=== PATIENT | male | born 1960 | race Caucasian/White ===

== ENCOUNTER 2018-01-08 05:25 | Day surgery (SDC) | payer OTHER ==
[~2018-01-08] VITALS: Ht 167.6 cm; Wt 90.7 kg
--- NOTE | ~2018-01-08 | OP ---
PATIENT NAME: ERICK ROACH MEDICAL RECORD: [id number] :58 LOCATION:[facility] ADMISSION DATE: SURGEON: WESLY GONSALES MD DATE OF OPERATION: 01/08/2018 PREOPERATIVE DIAGNOSIS: Tattooed sessile ascending colon polyp, about 2 cm. POSTOPERATIVE DIAGNOSES: Tattooed sessile ascending colon polyp, about 2 cm with 1.0 cm semi-pedunculated polyp in the lower rectum. PROCEDURES: 1. Total colonoscopy to cecum. 2. Submucosal epinephrine injection. 3. Snare polypectomy. 4. Treatment of the polypoid base with the argon plasma maintenance supervisor. 5. Closure of the excised defect with 4 endoscopic clips. 6. Hot biopsy forceps polypectomy times 1. SURGEON: Wesly Gonsales MD. SHIPPING AND RECEIVING CLERK: None. BLOOD LOSS: Minimal. ANESTHESIA: General. COMPLICATIONS: None. The risks, possible complications, and alternatives to procedure were explained to the patient. He elects to proceed. The discussion specifically included, but was not limited to, bleeding requiring emergency reoperation, infection, endoscopic perforation. OPERATIVE COURSE: The patient was conveyed to the operating room electively on 01/08/2018. General anesthesia was induced by anesthesia staff. The patient was placed in the Tam position. A digital rectal examination was performed. The prostate was symmetric and without nodules. A colonoscope was inserted through the anus. It was easily advanced to the cecum. The prep was adequate. Upon withdrawal, I irrigated and aspirated extensively. A combination of normal imaging and narrow band imaging were utilized. The pullback was greater than 18-minute pullback. I dragged the folds. I noted the polyp at the hepatic flexure. I advanced a sclerotherapy needle. A submucosal injection of epinephrine was performed. This provided for a nice pillow of epinephrine underneath the polyp and a good lift of the polyp away from the colonic wall. I advanced an endoscopic snare. I was able to snare the base of this sessile polyp. There was a small amount of polypoid tissue around the excision site. This was ablated utilizing the argon plasma maintenance supervisor with the right colon setting and the forced mode. After the argon plasma coagulation therapy and the snare polypectomy, there was a defect in the colonic wall that was not full thickness, but it was very thin. In order to reinforce this area, I placed a row of 4 endoscopic clips. An endoscopic retrieval net was then advanced. I was able to grasp the polyp within the net and withdraw out through the anus. I then readvanced the scope. A retroflexed view was obtained in the rectum. It revealed a polyp, which was OPERATIVE REPORT [id number] ERICK ROACH removed utilizing the hot biopsy forceps polypectomy technique. Several other trivial polyps were noted and these were ablated with the argon plasma maintenance supervisor. I then unretroflexed the scope and removed it under direct vision. I will see the patient in my office in 2-3 weeks. I will plan for a repeat colonoscopy with the argon plasma maintenance supervisor in one year. TRANSINT:[id number] Voice Confirmation ID: [id number] DOCUMENT ID: [id number] WESLY GONSALES MD at 1227 CC: JOSSUE GREGORY and KATI CASTRO DO [id number] DICTATION DATE: 01/08/18824 [facility]: 01/08/18924 [facility] 01/08/18 [id number] [place] [address]
[~2018-01-08 05:25] MED LIST: COZAAR50 MG PO
[2018-01-08] MEDS ORDERED: BAYER CHEWABLE81 MG PO (06:25)
[2018-01-08] MEDS ORDERED: MULTIPLE VITAMI1 TA1 PO (06:25)
[2018-01-08] MEDS ORDERED: CLARITIN 10 MG10 MG PO (06:26)
[2018-01-08 06:27] LABS: HEMATOCRIT 39.9 % (42.0-54.0); HEMOGLOBIN 13.6 g/dL (13.5-17.5); MCH 32.4 pg (26.0-34.0); MCHC 34.1 g/dL (31.0-37.0); MEAN PLATELET VOLUME 9.4 fL (7.4-10.4); RBC 4.2 10x6/uL (4.20-6.10); RDW 13.5 % (11.5-14.5); WBC 6.2 10x3/uL (4.8-10.8)
[2018-01-08 06:31] VITALS: BP 138/83; Ht 167.6 cm; Wt 90.7 kg
== END 2018-01-08 10:50 | disposition home or self-care (01) ==
LOC: D.PAN 05:25 → D.OPS 10:00 → D.PAN 10:50
PROVIDERS: Anesthesiology
DX: D12.2 Benign neoplasm of ascending colon (principal); K62.1 Rectal polyp; Z01.812 Encounter for preprocedural laboratory examination

== ENCOUNTER → 2021-01-15 14:45 | Outpatient (CLI) | payer OTHER ==
[2018-01-08 06:31] VITALS: BMI 32.3
[~2021-01-15 14:45] MED LIST changes: +BAYER CHEWABLE81 MG PO; +CLARITIN 10 MG10 MG PO; +MULTIPLE VITAMI1 TA1 PO
== END | disposition home or self-care (01) ==
LOC: D.US 14:45
PROVIDERS: ATTEND Nurse Practitioner
DX: D17.1 Benign lipomatous neoplasm of skin and subcutaneous tissue of trunk (principal)

== ENCOUNTER 2021-02-04 10:20 | Day surgery (SDC) | payer OTHER ==
[~2021-02-04] VITALS: Ht 167.6 cm; Wt 93.0 kg
[~2021-02-04 10:20] MED LIST changes: +FISH OIL 1,0001 CA1 PO; +[UNRECOGNIZED DRUG - REMARK]
[2021-02-04 11:07] LABS: BASOPHILS 0.6 % (0-2); EOSINOPHILS 1.1 % (0-7); HEMATOCRIT 40.8 % (42.0-54.0); HEMOGLOBIN 13.6 g/dL (13.5-17.5); LYMPHOCYTES 36.5 % (15-50); MCH 31.8 pg (26.0-34.0); MCHC 33.3 g/dL (31.0-37.0); MCV 95.4 fL (80.0-100.0); MONOCYTES 8.8 % (2-11); RBC 4.28 10x6/uL (4.20-6.10); RDW 13.5 % (11.5-14.5); WBC 7.2 10x3/uL (4.8-10.8)
[2021-02-04 11:19] LABS: CALC OSMOLALITY 273 mosm/kg (275-300); CALCIUM 8.8 mg/dL (8.5-10.1); CARBON DIOXIDE 28.5 mmol/L (21.0-32.0); CHLORIDE - SERUM 102 mmol/L (98-107); CREATININE - SERUM 0.9 mg/dL (0.6-1.3); GLUCOSE 85 mg/dL (74-106); POTASSIUM - SERUM 4.4 mmol/L (3.5-5.1); SODIUM 138 mmol/L (136-145); UREA NITROGEN 11 mg/dL (7-18); eGFR NON AFRICAN AMERICAN > 90 mL/min (90-120)
[2021-02-04 11:26] LABS: PLATELET COUNT 295 10x3/uL (130-400)
[2021-02-04] MEDS ORDERED: LIPITOR10 MG PO (14:00)
[2021-02-04 14:03] VITALS: BP 158/82; Ht 167.6 cm; Wt 93.0 kg
--- NOTE | 2021-02-04 18:30 | NUR ---
IV D/C'D WITH CANNULA INTACT, PRESSURE HELD AND DRSG PLACED. DISCHARGE INSTRUCTIONS GIVEN AND PT AND VERBALIZED AN UNDERSTANDING. DISCHARGED HOME WITHOUT C/O
--- NOTE | 2021-02-05 15:36 | OP ---
PATIENT NAME: ERICK ROACH MEDICAL RECORD: [id number] :58 LOCATION:[facility] ADMISSION DATE: SURGEON: WESLY GONSALES MD DATE OF OPERATION: 02/04/2021 PREOPERATIVE DIAGNOSIS: A subcutaneous mass at the cephalad portion of the sternum overlying the manubrium. POSTOPERATIVE DIAGNOSIS: A subcutaneous mass at the cephalad portion of the sternum overlying the manubrium. The mass was a sebaceous cyst. PROCEDURE: Excision of sebaceous cyst overlying the sternum. SURGEON: Wesly Gonsales M.D. AUTOMATION LEAD: None. BLOOD LOSS: 50 mL. ANESTHESIA: General. COMPLICATIONS: None. Risks and possible complications and alternatives of the procedure were explained to the patient. He elects to proceed. The patient reports undergoing incision and drainage procedures in the past. OPERATIVE COURSE: The patient was taken to the operating room electively on 02/04/2021 General anesthesia was induced by the anesthesia staff. The patient's chest was sterilely prepped and draped. Through the use of double curvilinear incisions, I excised the skin and subcutaneous tissue overlying the mass. I then began a subcutaneous dissection of the mass. The mass went down to the periosteum of the sternum over the manubrium. I continued my dissection. The cyst ruptured. A lot of keratin debris came out. So this is a sebaceous cyst. The cyst was removed in a piecemeal fashion. I am pretty certain that I was able to remove the entire cyst. All of the keratin material was removed as well. Some surrounding connective tissue was excised in a piecemeal fashion in order to prevent the sebaceous cyst from recurring. I irrigated several times with hydrogen peroxide. Meticulous hemostasis was achieved with electrocautery as well as with Perla. I then closed the incision. This was a transverse incision. It was closed with interrupted 3-0 Vicryl sutures for the deep dermis as well as a running intracuticular 4-0 Vicryl for the skin. A sterile dressing was applied. The patient was then extubated and conveyed to post-anesthesia care Unit where he was in stable condition. He is going to be dismissed home on a narcotic analgesic. I will see him in the office in 2 to 3 weeks. TRANSINT:[id number] Voice Confirmation ID: [id number] DOCUMENT ID: [id number] OPERATIVE REPORT [id number] ERICK ROACH, WESLY TRISTAN at 1536 CC: [id number] DICTATION DATE: 02/05/21 0948 LINEN ATTENDANT: 02/05/21 1028 [facility] 02/04/21 [id number] [place] [address]
== END 2021-02-04 17:50 | disposition home or self-care (01) ==
LOC: D.OPS 10:20
PROVIDERS: Anesthesiology; ATTEND Surgery
DX: D17.1 Benign lipomatous neoplasm of skin and subcutaneous tissue of trunk (principal); I10 Essential (primary) hypertension; E78.2 Mixed hyperlipidemia; Z68.36 Body mass index [BMI] 36.0-36.9, adult